=== PATIENT | male | born 1960 | race Caucasian/White ===

== ENCOUNTER → 2024-01-18 14:44 | Outpatient (REF) | payer BC, SELFPAY | LOC: RCS 14:44 | PROVIDERS: ATTENDING PHYSICIAN Internal Medicine Interventional Cardiology; FAMILY PHYSICIAN Family Medicine | DX: I25.2 Old myocardial infarction (principal); I25.5 Ischemic cardiomyopathy | CPT/HCPCS: 93306 ==